=== PATIENT | female | born 1950 | race African-American/Black ===

== ENCOUNTER 2019-05-10 09:52 | Inpatient (IN) | payer BC, MEDICARE ==
[~2019-05-10] VITALS: Ht 172.7 cm; Wt 98.0 kg
[2019-05-10] MEDS ORDERED: MORPHINE SULFATE 4 MG/ML CPJ (NOT FOR IM USE) IV STA (10:19)
[2019-05-10 12:10] LABS: CHLORIDE 103 mEq/L (98-107)
[2019-05-10 12:11] LABS: HEMATOCRIT. 27.9 % (36.0-48.0); HEMOGLOBIN. 9.4 g/dL (12.0-16.0); MEAN CORPUSCULAR HEMOGLOBIN 29.7 pg (28.0-32.0); MEAN CORPUSCULAR VOLUME 88.2 fL (81.0-99.0); MEAN PLATELET VOLUME 10.1 fl (7.4-10.4); PLATELET 132 x1000/uL (130-400); RED BLOOD CELL COUNT 3.16 mill/uL (4.2-5.4); RED CELL DISTRIBUTION WIDTH 15.3 % (11.6-14.6)
[2019-05-10] MEDS ORDERED: ASPIRIN 325MG EC TABLET PO ONE (12:45)
[2019-05-10 13:11] LABS: PLATELET ESTIMATE NORMAL
[2019-05-10] MEDS ORDERED: LORAZEPAM 0.5MG TABLET PO PRN (13:15)
[2019-05-10] MEDS ORDERED: DIPHENHYDRAMINE 50MG/ML VIAL IV PRN (13:15)
[2019-05-10] MEDS ORDERED: ONDANSETRON HCL 4MG/2ML INJ IV PRN (13:15)
[2019-05-10] MEDS ORDERED: GUAIFENESIN 200MG/10ML SUGAR FREE UDC PO PRN (13:15)
[2019-05-10] MEDS ORDERED: NA PHOS,M-B/NA PHOS,DI-BA ENEMA 118ML PR PRN (13:15)
[2019-05-10] MEDS ORDERED: ACETAMINOPHEN 650MG SUPP PR PRN (13:15)
[2019-05-10] MEDS ORDERED: IPRATROPIUM/ALBUTEROL 0.5-3(2.5)MG/3ML NEB NEB PRN (13:15)
[2019-05-10] MEDS ORDERED: CLONIDINE 0.1MG TABLET PO PRN (13:15)
[2019-05-10] MEDS ORDERED: IOHEXOL-350 100 ML BOTTLE ONE (13:34)
[2019-05-10] MEDS ORDERED: LEVOFLOXACIN 500MG PREMIX 100 ML IV SCH (14:30)
[2019-05-10] MEDS ORDERED: PANTOPRAZOLE SODIUM 40 MG/VIAL IV SCH (14:30)
[2019-05-10 14:37] LABS: INR 1.3; PROTHROMBIN TIME 12.7 sec (9.6-11.0)
[2019-05-10 14:46] LABS: CREATINE KINASE 36 IU/L (26-192)
[2019-05-10 14:48] LABS: CREATINE KINASE MB FRACTION < 1.0 ng/mL (0.5-3.6)
[2019-05-10] MEDS: ACETAMINOPHEN 325MG TABLET PO PRN (15:21)
[2019-05-10 17:50] LABS: BG BASE EXCESS 2.1 mmol/L (-2.0-2.0); BG CARBOXYHEMOGLOBIN 0.5 % (0.5-1.5); BG DEOXYHEMOGLOBIN 3.6 % (0.0-5.0); BG FRACTION INSPIRED OXYGEN 21; BG HCO3 ACT 23.2 mmol/L (22.0-26.0); BG METHEMOGLOBIN 0.3 % (0.0-1.5); BG OXYGEN SATURATION 96.4 % (92.0-98.5); BG OXYHEMOGLOBIN 95.6 % (94.0-97.0); BG PCO2 24.7 mmHg (35.0-45.0); BG PH 7.591 (7.350-7.450); BG PO2 78.5 mmHg (75.0-100.0); BG SAMPLE SITE RIGHT BRACHIAL; BG TOTAL HEMOGLOBIN 9.4 g/dL (12.0-18.0); BG VENT MODE ROOM AIR
[2019-05-10] MEDS ORDERED: SIMETHICONE 80MG TABLET CHEW PO NR (18:00)
[2019-05-10 18:34] VITALS: BP 108/57
[2019-05-10] MEDS ORDERED: MULT-1146 MT (18:47)
[2019-05-10] MEDS ORDERED: LOSA1TAB37 MT (18:47)
[2019-05-10] MEDS ORDERED: APIX5TAB PO (18:47)
[2019-05-10 20:00] VITALS: BP 113/62
[2019-05-10] MEDS: MORPHINE SULFATE 2 MG/ML CPJ (NOT FOR IM USE) IV PRN (20:07)
[2019-05-10] MEDS ORDERED: PNEUMOCOCCAL 23-VAL P-SAC VAC 0.5 ML IM ONE (22:15)
[2019-05-11] VITALS: BP 111/65
[2019-05-11] MEDS ORDERED: PIPERACILLIN/TAZOBACTAM 3.375 G in DEXT 5% WATER 100 ML IV SCH (00:15)
[2019-05-11] MEDS ORDERED: FILGRASTIM-TBO 300 MCG/0.5 ML SYRINGE SQ SCH (02:00)
[2019-05-11 04:00] VITALS: BP 130/64
[2019-05-11] MEDS ORDERED: VANCOMYCIN 1500MG in DEXTROSE 5% WATER 250ML IV NR (04:00)
[2019-05-11] MEDS: PIPERACILLIN/TAZOBACTAM 3.375 G in DEXT 5% WATER 100 ML IV SCH ×2 (06:02→12:35)
[2019-05-11 07:05] LABS: HEMATOCRIT. 24.8 % (36.0-48.0); HEMOGLOBIN. 8.5 g/dL (12.0-16.0); MEAN CORPUSCULAR HEMOGLOBIN 30.1 pg (28.0-32.0); MEAN CORPUSCULAR VOLUME 88.4 fL (81.0-99.0); MEAN PLATELET VOLUME 8.8 fl (7.4-10.4); PLATELET 64 x1000/uL (130-400); RED CELL DISTRIBUTION WIDTH 15.6 % (11.6-14.6)
[2019-05-11 07:09] LABS: CHLORIDE 103 mEq/L (98-107)
[2019-05-11 07:25] LABS: CREATINE KINASE MB FRACTION < 1.0 ng/mL (0.5-3.6)
[2019-05-11 07:26] LABS: T4 FREE 1.29 ng/dL (0.76-1.46)
[2019-05-11 07:27] LABS: LDL CHOLESTEROL 44 mg/dL (5-100)
[2019-05-11 07:28] LABS: CREATINE KINASE 23 IU/L (26-192)
[2019-05-11 07:29] LABS: HDL CHOLESTEROL 54 mg/dL (40-59)
[2019-05-11 08:00] VITALS: BP 124/71
[2019-05-11] MEDS: IPRATROPIUM/ALBUTEROL 0.5-3(2.5)MG/3ML NEB NEB SCH (08:41)
[2019-05-11] MEDS ORDERED: ASPIRIN 81MG EC TABLET PO SCH (09:00)
[2019-05-11] MEDS: PANTOPRAZOLE SODIUM 40 MG/VIAL IV SCH (09:20)
[2019-05-11] MEDS: MORPHINE SULFATE 2 MG/ML CPJ (NOT FOR IM USE) IV PRN ×2 (09:20→21:47)
[2019-05-11] MEDS ORDERED: POTASSIUM CHLORIDE 20MEQ TABLET SR PO NR (11:00)
[2019-05-11 12:00] VITALS: BP 136/68
[2019-05-11] MEDS ORDERED: LEVOFLOXACIN 500MG PREMIX 100 ML IV SCH (14:00)
[2019-05-11 14:16] LABS: PLATELET ESTIMATE DECREASED
[2019-05-11 16:03] VITALS: BP 124/65
[2019-05-11] MEDS: ACETAMINOPHEN 325MG TABLET PO PRN (16:24)
[2019-05-11] MEDS: VANCOMYCIN 1250MG in DEXTROSE 5% WATER 250ML IV SCH (17:25)
[2019-05-11] MEDS: CEFEPIME 1,000 MG in DEXTROSE 5% WATER 50 ML IV SCH (17:25)
[2019-05-11 19:13] LABS: CLARITY URINE CLOUDY (CLEAR); COLOR URINE DARK YELLOW (YELLOW); KETONES URINE TRACE (NEGATIVE); LEUKOCYTE ESTERASE URINE TRACE (NEGATIVE); NITRITE URINE NEGATIVE (NEGATIVE); OCCULT BLOOD URINE NEGATIVE (NEGATIVE); PH URINE 6.5 (4.5-8.0); PROTEIN URINE 1+ (NEGATIVE); SPECIFIC GRAVITY URINE 1.059 (1.005-1.030)
[2019-05-11 19:31] LABS: *AMPHETAMINES SCREEN URINE NEGATIVE (NEGATIVE); *BARBITURATES SCREEN URINE NEGATIVE (NEGATIVE); *BENZODIAZEPINES SCREEN URINE NEGATIVE (NEGATIVE); *COCAINE SCREEN URINE NEGATIVE (NEGATIVE); METHADONE URINE SCREEN NEGATIVE (NEGATIVE)
[2019-05-11 19:32] LABS: CANNABINOID URINE SCREEN NEGATIVE (NEGATIVE); OPIATES URINE SCREEN PRESUMTIVE POSITIVE (NEGATIVE); PHENCYCLIDINE URINE SCREEN NEGATIVE (NEGATIVE)
[2019-05-11 20:00] VITALS: BP 115/50
[2019-05-11 21:02] LABS: HEMATOCRIT 25.1 % (36.0-48.0); HEMOGLOBIN 8.5 g/dL (12.0-16.0)
[2019-05-11] MEDS: METRONIDAZOLE 500 MG PREMIX 100 ML IV SCH (21:46)
[2019-05-11] MEDS: FILGRASTIM-TBO 480 MCG/0.8 ML SYRINGE SQ SCH (22:26)
[2019-05-12] VITALS: BP 123/65
[2019-05-12] MEDS: APIXABAN 5 MG TABLET PO SCH ×3 (00:10→17:30)
[2019-05-12] MEDS: IPRATROPIUM/ALBUTEROL 0.5-3(2.5)MG/3ML NEB NEB SCH ×5 (01:25→21:04)
[2019-05-12 04:00] VITALS: BP 107/60
[2019-05-12] MEDS: CEFEPIME 1,000 MG in DEXTROSE 5% WATER 50 ML IV SCH ×2 (05:30→17:30)
[2019-05-12] MEDS: SIMETHICONE 80MG TABLET CHEW PO PRN (06:03)
[2019-05-12] MEDS: METRONIDAZOLE 500 MG PREMIX 100 ML IV SCH ×3 (06:08→21:59)
[2019-05-12 06:31] LABS: HEMATOCRIT. 23.8 % (36.0-48.0); HEMOGLOBIN. 8.1 g/dL (12.0-16.0); MEAN CORPUSCULAR HEMOGLOBIN 29.8 pg (28.0-32.0); MEAN CORPUSCULAR VOLUME 87.5 fL (81.0-99.0); RED BLOOD CELL COUNT 2.72 mill/uL (4.2-5.4); RED CELL DISTRIBUTION WIDTH 15.2 % (11.6-14.6)
[2019-05-12 06:32] LABS: CHLORIDE 102 mEq/L (98-107)
[2019-05-12 08:00] VITALS: BP 124/69
[2019-05-12] MEDS: PANTOPRAZOLE SODIUM 40 MG/VIAL IV SCH (09:18)
[2019-05-12 09:26] LABS: MEAN PLATELET VOLUME 8.3 fl (7.4-10.4); PLATELET 57 x1000/uL (130-400)
[2019-05-12 09:35] LABS: NUCLEATED RED BLOOD CELLS 1 /100 WBC; PLATELET ESTIMATE DECREASED
[2019-05-12] MEDS: HYDROCODONE/ACETAMINOPHEN 5/325MG TABLET PO PRN (09:42)
[2019-05-12 12:00] VITALS: BP 122/68
[2019-05-12] MEDS: VANCOMYCIN 1250MG in DEXTROSE 5% WATER 250ML IV SCH (12:46)
[2019-05-12 16:00] VITALS: BP 120/60
[2019-05-12 20:00] VITALS: BP 106/54
[2019-05-12] MEDS: MORPHINE SULFATE 2 MG/ML CPJ (NOT FOR IM USE) IV PRN (21:58)
[2019-05-12] MEDS: FILGRASTIM-TBO 480 MCG/0.8 ML SYRINGE SQ SCH (21:59)
[2019-05-13] VITALS: BP 130/77
[2019-05-13] MEDS: IPRATROPIUM/ALBUTEROL 0.5-3(2.5)MG/3ML NEB NEB SCH ×2 (03:03→22:00)
[2019-05-13 04:00] VITALS: BP 109/67
[2019-05-13] MEDS: METRONIDAZOLE 500 MG PREMIX 100 ML IV SCH ×3 (05:23→22:43)
[2019-05-13] MEDS: CEFEPIME 1,000 MG in DEXTROSE 5% WATER 50 ML IV SCH ×2 (05:23→18:19)
[2019-05-13] MEDS: VANCOMYCIN 1250MG in DEXTROSE 5% WATER 250ML IV SCH (05:23)
[2019-05-13 08:00] VITALS: BP 105/65
[2019-05-13] MEDS: APIXABAN 5 MG TABLET PO SCH (09:00)
[2019-05-13] MEDS: PANTOPRAZOLE SODIUM 40 MG/VIAL IV SCH (09:52)
[2019-05-13] MEDS: DOCUSATE SODIUM 100MG CAPSULE PO PRN (09:52)
[2019-05-13 12:00] VITALS: BP 126/69
[2019-05-13] MEDS: HYDROCODONE/ACETAMINOPHEN 5/325MG TABLET PO PRN (14:01)
[2019-05-13 16:00] VITALS: BP 108/78
[2019-05-13] MEDS: PHENYLEPHRINE/SHK LV/MO/PET,WH RECTAL OINT 28GM PR SCH ×2 (18:19→23:13)
[2019-05-13 20:00] VITALS: BP 125/87
[2019-05-13] MEDS: FILGRASTIM-TBO 480 MCG/0.8 ML SYRINGE SQ SCH (22:49)
[2019-05-13] MEDS: HEMORRHOIDAL SUPP PR SCH (22:49)
[2019-05-14] VITALS (8 sets, daily range): BP systolic 98–134; BP diastolic 63–76
[2019-05-14] MEDS: HYDROCODONE/ACETAMINOPHEN 5/325MG TABLET PO PRN ×3 (01:23→18:24)
[2019-05-14] MEDS: MORPHINE SULFATE 2 MG/ML CPJ (NOT FOR IM USE) IV PRN (04:13)
[2019-05-14] MEDS: PHENYLEPHRINE/SHK LV/MO/PET,WH RECTAL OINT 28GM PR SCH ×3 (05:53→17:14)
[2019-05-14] MEDS: METRONIDAZOLE 500 MG PREMIX 100 ML IV SCH ×3 (05:53→22:10)
[2019-05-14] MEDS: CEFEPIME 1,000 MG in DEXTROSE 5% WATER 50 ML IV SCH ×2 (05:53→17:14)
[2019-05-14] MEDS ORDERED: SODIUM BICARBONATE 4% (2.4MEQ) 5ML VIAL IV ONE (08:10)
[2019-05-14] MEDS ORDERED: LIDOCAINE HCL 1% 20ML VIAL (Pyxis) INJ ONE (08:10)
[2019-05-14] MEDS: IPRATROPIUM/ALBUTEROL 0.5-3(2.5)MG/3ML NEB NEB SCH ×3 (09:04→22:38)
[2019-05-14] MEDS: PANTOPRAZOLE SODIUM 40 MG/VIAL IV SCH (09:34)
[2019-05-14] MEDS: HEMORRHOIDAL SUPP PR SCH ×2 (09:34→22:00)
[2019-05-14 11:42] LABS: HEMATOCRIT. 23.9 % (36.0-48.0); MEAN CORPUSCULAR HEMOGLOBIN 29.4 pg (28.0-32.0); MEAN CORPUSCULAR VOLUME 87.1 fL (81.0-99.0); MEAN PLATELET VOLUME 8.6 fl (7.4-10.4); RED BLOOD CELL COUNT 2.74 mill/uL (4.2-5.4); RED CELL DISTRIBUTION WIDTH 15.2 % (11.6-14.6)
[2019-05-14 11:47] LABS: PLATELET 32 x1000/uL (130-400)
[2019-05-14 12:01] LABS: CHLORIDE 103 mEq/L (98-107)
[2019-05-14 14:10] LABS: NUCLEATED RED BLOOD CELLS 24 /100 WBC; PLATELET ESTIMATE MARKEDLY DECREASED
[2019-05-14] MEDS: DOCUSATE SODIUM 100MG CAPSULE PO PRN (17:16)
[2019-05-14] MEDS: FILGRASTIM-TBO 480 MCG/0.8 ML SYRINGE SQ SCH (22:50)
[2019-05-15] VITALS: BP 126/60
[2019-05-15] MEDS: PHENYLEPHRINE/SHK LV/MO/PET,WH RECTAL OINT 28GM PR SCH ×5 (01:59→23:12)
[2019-05-15] MEDS: IPRATROPIUM/ALBUTEROL 0.5-3(2.5)MG/3ML NEB NEB SCH ×5 (02:15→22:08)
[2019-05-15 04:00] VITALS: BP 130/74
[2019-05-15] MEDS: METRONIDAZOLE 500 MG PREMIX 100 ML IV SCH ×3 (05:24→23:12)
[2019-05-15] MEDS: CEFEPIME 1,000 MG in DEXTROSE 5% WATER 50 ML IV SCH ×2 (06:22→17:36)
[2019-05-15 07:39] LABS: CHLORIDE 102 mEq/L (98-107); HEMATOCRIT 22.7 % (36.0-48.0); HEMOGLOBIN 7.8 g/dL (12.0-16.0); MEAN CORPUSCULAR HEMOGLOBIN 29.8 pg (28.0-32.0); MEAN CORPUSCULAR VOLUME 87.2 fL (81.0-99.0); PLATELET 51 x1000/uL (130-400); RED BLOOD CELL COUNT 2.61 mill/uL (4.2-5.4); RED CELL DISTRIBUTION WIDTH 15.4 % (11.6-14.6)
[2019-05-15] MEDS: ACETAMINOPHEN 325MG TABLET PO PRN ×2 (08:57→20:16)
[2019-05-15] MEDS: PANTOPRAZOLE SODIUM 40 MG/VIAL IV SCH (08:58)
[2019-05-15] MEDS: HEMORRHOIDAL SUPP PR SCH ×2 (08:59→20:15)
[2019-05-15] MEDS ORDERED: POTASSIUM CHLORIDE 20MEQ TABLET SR PO SCH (10:15)
[2019-05-15 12:00] VITALS: BP 103/60
[2019-05-15 16:00] VITALS: BP 100/66
[2019-05-15] MEDS: FERROUS SULFATE 325MG TABLET PO SCH (17:36)
[2019-05-15 20:00] VITALS: BP 99/60
[2019-05-15] MEDS: ENOXAPARIN 100MG/ML SYR SUBCUT SCH (20:15)
[2019-05-16] VITALS: BP 112/60
[2019-05-16] MEDS: IPRATROPIUM/ALBUTEROL 0.5-3(2.5)MG/3ML NEB NEB SCH ×4 (02:10→21:32)
[2019-05-16 04:00] VITALS: BP 108/64
[2019-05-16] MEDS: PHENYLEPHRINE/SHK LV/MO/PET,WH RECTAL OINT 28GM PR SCH ×4 (05:37→23:49)
[2019-05-16] MEDS: CEFEPIME 1,000 MG in DEXTROSE 5% WATER 50 ML IV SCH ×2 (05:37→17:30)
[2019-05-16] MEDS: METRONIDAZOLE 500 MG PREMIX 100 ML IV SCH ×3 (06:32→22:28)
[2019-05-16 06:49] LABS: HEMATOCRIT. 24.3 % (36.0-48.0); HEMOGLOBIN. 8.2 g/dL (12.0-16.0); MEAN CORPUSCULAR HEMOGLOBIN 29.3 pg (28.0-32.0); MEAN CORPUSCULAR VOLUME 87.5 fL (81.0-99.0); MEAN PLATELET VOLUME 8.9 fl (7.4-10.4); PLATELET 61 x1000/uL (130-400); RED BLOOD CELL COUNT 2.78 mill/uL (4.2-5.4)
[2019-05-16 07:10] LABS: CHLORIDE 104 mEq/L (98-107)
[2019-05-16 08:00] VITALS: BP 103/58
[2019-05-16] MEDS: HEMORRHOIDAL SUPP PR SCH ×2 (09:33→20:27)
[2019-05-16] MEDS: PANTOPRAZOLE SODIUM 40 MG/VIAL IV SCH (09:33)
[2019-05-16] MEDS: FERROUS SULFATE 325MG TABLET PO SCH ×3 (09:34→17:30)
[2019-05-16] MEDS: ENOXAPARIN 100MG/ML SYR SUBCUT SCH ×2 (09:43→20:27)
[2019-05-16] MEDS: SIMETHICONE 80MG TABLET CHEW PO PRN (10:17)
[2019-05-16] MEDS: MAGNESIUM/ALUMINUM HYDROXIDE/SIMETHICONE 30ML UDC PO PRN (10:27)
[2019-05-16 11:30] VITALS: BP 145/84
[2019-05-16 16:00] VITALS: BP 111/66
[2019-05-17] VITALS: BP 138/69
[2019-05-17 04:00] VITALS: BP 122/75
[2019-05-17] MEDS: CEFEPIME 1,000 MG in DEXTROSE 5% WATER 50 ML IV SCH ×2 (05:46→17:37)
[2019-05-17] MEDS: PHENYLEPHRINE/SHK LV/MO/PET,WH RECTAL OINT 28GM PR SCH ×3 (05:46→17:36)
[2019-05-17] MEDS: METRONIDAZOLE 500 MG PREMIX 100 ML IV SCH ×3 (05:48→22:06)
[2019-05-17 07:55] LABS: HEMATOCRIT 21.2 % (36.0-48.0); MEAN CORPUSCULAR HEMOGLOBIN 29.2 pg (28.0-32.0); MEAN CORPUSCULAR VOLUME 88.7 fL (81.0-99.0); PLATELET 69 x1000/uL (130-400); RED BLOOD CELL COUNT 2.39 mill/uL (4.2-5.4); RED CELL DISTRIBUTION WIDTH 15.8 % (11.6-14.6)
[2019-05-17 08:00] VITALS: BP 142/62
[2019-05-17 08:33] LABS: CHLORIDE 104 mEq/L (98-107)
[2019-05-17] MEDS: IPRATROPIUM/ALBUTEROL 0.5-3(2.5)MG/3ML NEB NEB SCH ×2 (08:45→14:09)
[2019-05-17] MEDS: PANTOPRAZOLE SODIUM 40 MG/VIAL IV SCH (09:04)
[2019-05-17] MEDS: FERROUS SULFATE 325MG TABLET PO SCH ×3 (09:04→17:35)
[2019-05-17] MEDS: HEMORRHOIDAL SUPP PR SCH ×2 (09:44→22:05)
[2019-05-17] MEDS: ENOXAPARIN 100MG/ML SYR SUBCUT SCH ×2 (09:44→21:06)
[2019-05-17 12:00] VITALS: BP 165/88
[2019-05-17 15:40] LABS: NUCLEATED RED BLOOD CELLS 21 /100 WBC
[2019-05-17 15:41] LABS: PLATELET ESTIMATE DECREASED
[2019-05-17 16:00] VITALS: BP 151/72
[2019-05-17] MEDS: POTASSIUM CHLORIDE 20MEQ TABLET SR PO NR ×2 (17:35→17:37)
[2019-05-17 20:00] VITALS: BP 111/81
[2019-05-18] VITALS (11 sets, daily range): BP systolic 94–146; BP diastolic 60–80
[2019-05-18] MEDS: PHENYLEPHRINE/SHK LV/MO/PET,WH RECTAL OINT 28GM PR SCH ×5 (00:42→23:53)
[2019-05-18] MEDS: IPRATROPIUM/ALBUTEROL 0.5-3(2.5)MG/3ML NEB NEB SCH ×5 (00:50→20:56)
[2019-05-18 06:04] LABS: INR 1.5; PROTHROMBIN TIME 15.1 sec (9.6-11.0)
[2019-05-18] MEDS: CEFEPIME 1,000 MG in DEXTROSE 5% WATER 50 ML IV SCH ×2 (06:13→18:05)
[2019-05-18] MEDS: METRONIDAZOLE 500 MG PREMIX 100 ML IV SCH ×3 (06:14→21:21)
[2019-05-18 06:46] LABS: HEMATOCRIT. 28.6 % (36.0-48.0); HEMOGLOBIN. 9.5 g/dL (12.0-16.0); MEAN CORPUSCULAR HEMOGLOBIN 29.2 pg (28.0-32.0); MEAN CORPUSCULAR VOLUME 87.5 fL (81.0-99.0); MEAN PLATELET VOLUME 8.9 fl (7.4-10.4); PLATELET 72 x1000/uL (130-400); RED BLOOD CELL COUNT 3.27 mill/uL (4.2-5.4)
[2019-05-18 07:09] LABS: CHLORIDE 104 mEq/L (98-107)
[2019-05-18] MEDS: FERROUS SULFATE 325MG TABLET PO SCH ×3 (09:11→18:04)
[2019-05-18] MEDS: PANTOPRAZOLE SODIUM 40 MG/VIAL IV SCH (09:12)
[2019-05-18] MEDS: ENOXAPARIN 100MG/ML SYR SUBCUT SCH ×2 (09:12→20:00)
[2019-05-18] MEDS: HEMORRHOIDAL SUPP PR SCH ×2 (09:20→21:20)
[2019-05-18] MEDS ORDERED: POTASSIUM CHLORIDE 20MEQ TABLET SR PO NR (17:00)
[2019-05-18] MEDS: ACETAMINOPHEN 325MG TABLET PO PRN (23:51)
[2019-05-19] VITALS: BP 140/75
[2019-05-19] MEDS: IPRATROPIUM/ALBUTEROL 0.5-3(2.5)MG/3ML NEB NEB SCH ×4 (02:38→21:21)
[2019-05-19 04:00] VITALS: BP 152/75
[2019-05-19] MEDS: PHENYLEPHRINE/SHK LV/MO/PET,WH RECTAL OINT 28GM PR SCH ×3 (05:50→18:34)
[2019-05-19 07:10] LABS: HEMATOCRIT. 27.1 % (36.0-48.0); HEMOGLOBIN. 9.1 g/dL (12.0-16.0); MEAN CORPUSCULAR HEMOGLOBIN 29.3 pg (28.0-32.0); MEAN CORPUSCULAR VOLUME 87.7 fL (81.0-99.0); MEAN PLATELET VOLUME 8.2 fl (7.4-10.4); PLATELET 72 x1000/uL (130-400); RED BLOOD CELL COUNT 3.09 mill/uL (4.2-5.4)
[2019-05-19 07:20] LABS: CHLORIDE 107 mEq/L (98-107)
[2019-05-19] MEDS: FERROUS SULFATE 325MG TABLET PO SCH ×3 (07:50→18:33)
[2019-05-19 08:00] VITALS: BP 154/90
[2019-05-19] MEDS: ENOXAPARIN 100MG/ML SYR SUBCUT SCH ×2 (08:00→21:35)
[2019-05-19] MEDS: HEMORRHOIDAL SUPP PR SCH ×2 (09:00→21:45)
[2019-05-19 11:04] LABS: NUCLEATED RED BLOOD CELLS 10 /100 WBC; PLATELET ESTIMATE DECREASED
[2019-05-19 12:00] VITALS: BP 161/77
[2019-05-19] MEDS: PANTOPRAZOLE SODIUM 40 MG/VIAL IV SCH (13:33)
[2019-05-19] MEDS: SIMETHICONE 80MG TABLET CHEW PO PRN (14:53)
[2019-05-19 15:27] LABS: NUCLEATED RED BLOOD CELLS 4 /100 WBC; PLATELET ESTIMATE DECREASED
[2019-05-19 16:00] VITALS: BP 125/70
[2019-05-19] MEDS: MAGNESIUM/ALUMINUM HYDROXIDE/SIMETHICONE 30ML UDC PO PRN (16:57)
[2019-05-19 20:00] VITALS: BP 111/64
[2019-05-19] MEDS: ACETAMINOPHEN 325MG TABLET PO PRN (21:34)
[2019-05-20] VITALS: BP 119/65
[2019-05-20] MEDS: PHENYLEPHRINE/SHK LV/MO/PET,WH RECTAL OINT 28GM PR SCH ×3 (00:45→12:00)
[2019-05-20] MEDS: IPRATROPIUM/ALBUTEROL 0.5-3(2.5)MG/3ML NEB NEB SCH ×3 (01:23→14:47)
[2019-05-20 04:00] VITALS: BP 120/83
[2019-05-20 08:00] VITALS: BP 131/86
[2019-05-20] MEDS: HEMORRHOIDAL SUPP PR SCH (09:00)
[2019-05-20] MEDS: PANTOPRAZOLE SODIUM 40 MG/VIAL IV SCH (09:32)
[2019-05-20] MEDS: ENOXAPARIN 100MG/ML SYR SUBCUT SCH (09:45)
[2019-05-20] MEDS: FERROUS SULFATE 325MG TABLET PO SCH ×3 (09:45→17:59)
[2019-05-20 12:00] VITALS: BP 122/73
[2019-05-20 14:20] VITALS: BP 122/73
[2019-05-20 16:00] VITALS: BP 117/78
[2019-05-20] MEDS: MAGNESIUM/ALUMINUM HYDROXIDE/SIMETHICONE 30ML UDC PO PRN (17:37)
== END 2019-05-20 18:05 | DRG 73 ==
LOC: ER 09:52 → 5WST 12:41 → SUPCPDRO 13:09 → ENRESERV 14:55 → 6WST 05-14 14:26
PROVIDERS: ADMIT Ophthalmology; ATTEND Ophthalmology
PROC: 30233R1 Transfusion of Nonautologous Platelets into Peripheral Vein, Percutaneous Approach (ICD-10-PCS; principal; 2019-05-14)
PROC: 02HV33Z Insertion of Infusion Device into Superior Vena Cava, Percutaneous Approach (ICD-10-PCS; 2019-05-14)
PROC: B548ZZA Ultrasonography of Superior Vena Cava, Guidance (ICD-10-PCS; 2019-05-14)
PROC: B5181ZA Fluoroscopy of Superior Vena Cava using Low Osmolar Contrast, Guidance (ICD-10-PCS; 2019-05-14)
PROC: 30233N1 Transfusion of Nonautologous Red Blood Cells into Peripheral Vein, Percutaneous Approach (ICD-10-PCS; 2019-05-17)
DX: G13.0 Paraneoplastic neuromyopathy and neuropathy (principal); A41.9 Sepsis, unspecified organism; I50.33 Acute on chronic diastolic (congestive) heart failure; K83.1 Obstruction of bile duct; C25.9 Malignant neoplasm of pancreas, unspecified; D68.59 Other primary thrombophilia; N39.0 Urinary tract infection, site not specified; I82.621 Acute embolism and thrombosis of deep veins of right upper extremity; I82.C11 Acute embolism and thrombosis of right internal jugular vein; I82.A11 Acute embolism and thrombosis of right axillary vein; I82.B11 Acute embolism and thrombosis of right subclavian vein; D61.818 Other pancytopenia; I11.0 Hypertensive heart disease with heart failure; D64.9 Anemia, unspecified; R73.9 Hyperglycemia, unspecified; Z79.01 Long term (current) use of anticoagulants; K21.9 Gastro-esophageal reflux disease without esophagitis; K64.9 Unspecified hemorrhoids; D70.1 Agranulocytosis secondary to cancer chemotherapy; E87.8 Other disorders of electrolyte and fluid balance, not elsewhere classified; R26.9 Unspecified abnormalities of gait and mobility; E66.9 Obesity, unspecified; E88.09 Other disorders of plasma-protein metabolism, not elsewhere classified; T45.1X5A Adverse effect of antineoplastic and immunosuppressive drugs, initial encounter; G62.9 Polyneuropathy, unspecified; G89.29 Other chronic pain; Z82.49 Family history of ischemic heart disease and other diseases of the circulatory system; Z85.07 Personal history of malignant neoplasm of pancreas; Y92.89 Other specified places as the place of occurrence of the external cause; Z68.32 Body mass index [BMI] 32.0-32.9, adult
CPT/HCPCS: 36415; 36573; 36600; 71045; 71275; 74176; 76604; 80048; 80061; 80305; 81003; 82270; 82375; 82550; 82553; 82805; 83036; 83735; 83880; 84439; 84443; 84484; 85014; 85018; 85027; 85384; 86301; 86850; 86900; 86920; 87804; 93005; 93306; 93970; 93971; 94640; 97162; 97166; 97530; 99285; C1725; C9113; J0692; J1442; J1650; J1956; J2270; J2405; J2543; J3370; J3490; J7040; J7060; J7620; P9016; P9034; Q9967

== ENCOUNTER 2019-05-20 18:10 | Inpatient (IN) | payer BC, MEDICARE ==
[~2019-05-20] VITALS: Ht 172.7 cm; Wt 98.0 kg
[~2019-05-20 18:10] MED LIST: LOSA1TAB37 MT; MULT-1146 MT
[2019-05-20 20:00] VITALS: BP_SYST 125; BP_SYST 128; BP_DIAS 75; BP_DIAS 92
[2019-05-20] MEDS ORDERED: GUAIFENESIN 200MG/10ML SUGAR FREE UDC PO PRN (21:30)
[2019-05-20] MEDS ORDERED: NA PHOS,M-B/NA PHOS,DI-BA ENEMA 118ML PR PRN (21:30)
[2019-05-20] MEDS ORDERED: CLONIDINE 0.1MG TABLET PO PRN (21:30)
[2019-05-20] MEDS ORDERED: DIPHENHYDRAMINE 25MG CAPSULE PO PRN (21:30)
[2019-05-20] MEDS ORDERED: IPRATROPIUM/ALBUTEROL 0.5-3(2.5)MG/3ML NEB HHN PRN (21:30)
[2019-05-20] MEDS ORDERED: ACETAMINOPHEN 650MG SUPP PR PRN (21:30)
[2019-05-20] MEDS ORDERED: DOCUSATE SODIUM 100MG CAPSULE PO PRN (21:30)
[2019-05-20] MEDS ORDERED: ONDANSETRON HCL 4MG TABLET PO PRN (21:30)
[2019-05-21] MEDS: PHENYLEPHRINE/SHK LV/MO/PET,WH RECTAL OINT 28GM PR SCH ×4 (00:09→17:39)
[2019-05-21] MEDS: SIMETHICONE 80MG TABLET CHEW PO PRN ×2 (00:09→17:36)
[2019-05-21] MEDS: IPRATROPIUM/ALBUTEROL 0.5-3(2.5)MG/3ML NEB HHN SCH ×4 (01:55→21:05)
[2019-05-21] MEDS: ACETAMINOPHEN 325MG TABLET PO PRN (04:18)
[2019-05-21 08:26] VITALS: BP 103/64
[2019-05-21 08:58] LABS: HEMATOCRIT. 26.6 % (36.0-48.0); HEMOGLOBIN. 8.8 g/dL (12.0-16.0); MEAN CORPUSCULAR HEMOGLOBIN 29.3 pg (28.0-32.0); MEAN CORPUSCULAR VOLUME 88.6 fL (81.0-99.0); MEAN PLATELET VOLUME 8.7 fl (7.4-10.4); PLATELET 90 x1000/uL (130-400); RED BLOOD CELL COUNT 3.01 mill/uL (4.2-5.4); RED CELL DISTRIBUTION WIDTH 16.2 % (11.6-14.6)
[2019-05-21 09:00] LABS: CHLORIDE 113 mEq/L (98-107)
[2019-05-21] MEDS: HEMORRHOIDAL SUPP PR SCH ×2 (09:00→21:00)
[2019-05-21] MEDS: APIXABAN 5 MG TABLET PO SCH ×2 (10:05→17:36)
[2019-05-21] MEDS: FERROUS SULFATE 325MG TABLET PO SCH ×3 (10:05→17:36)
[2019-05-21] MEDS: PANTOPRAZOLE 40MG DR TABLET PO SCH (10:05)
[2019-05-21] MEDS ORDERED: POTASSIUM CHLORIDE 20MEQ TABLET SR PO NR (12:00)
[2019-05-21] MEDS: MAGNESIUM/ALUMINUM HYDROXIDE/SIMETHICONE 30ML UDC PO PRN (14:37)
[2019-05-21] MEDS ORDERED: HYDROCODONE/ACETAMINOPHEN 5/325MG TABLET PO PRN (17:15)
[2019-05-21 17:25] LABS: NUCLEATED RED BLOOD CELLS 2 /100 WBC; PLATELET ESTIMATE DECREASED
[2019-05-21 20:00] VITALS: BP 124/66
[2019-05-22] MEDS: IPRATROPIUM/ALBUTEROL 0.5-3(2.5)MG/3ML NEB HHN SCH ×2 (02:10→21:10)
[2019-05-22] MEDS: PHENYLEPHRINE/SHK LV/MO/PET,WH RECTAL OINT 28GM PR SCH ×4 (06:00→18:00)
[2019-05-22 07:48] LABS: HEMATOCRIT. 28.6 % (36.0-48.0); HEMOGLOBIN. 9.6 g/dL (12.0-16.0); MEAN CORPUSCULAR HEMOGLOBIN 29.8 pg (28.0-32.0); MEAN PLATELET VOLUME 9.2 fl (7.4-10.4); PLATELET 145 x1000/uL (130-400); RED BLOOD CELL COUNT 3.21 mill/uL (4.2-5.4); RED CELL DISTRIBUTION WIDTH 16.4 % (11.6-14.6)
[2019-05-22 07:51] LABS: CHLORIDE 106 mEq/L (98-107)
[2019-05-22 08:00] VITALS: BP 120/73
[2019-05-22 08:11] LABS: PHOSPHORUS 1.7 mg/dL (2.5-4.9)
[2019-05-22 08:17] LABS: TOTAL IRON BINDING CAPACITY 135 ug/dL (250-450)
[2019-05-22 08:26] LABS: VITAMIN B12 SERUM > 2000.0 pg/mL (211-911)
[2019-05-22] MEDS: HEMORRHOIDAL SUPP PR SCH ×2 (09:00→21:00)
[2019-05-22 09:25] LABS: FERRITIN 1675 ng/mL (10-291)
[2019-05-22] MEDS: APIXABAN 5 MG TABLET PO SCH ×2 (09:26→16:15)
[2019-05-22] MEDS: FERROUS SULFATE 325MG TABLET PO SCH ×3 (09:26→16:15)
[2019-05-22] MEDS: PANTOPRAZOLE 40MG DR TABLET PO SCH (09:26)
[2019-05-22 10:08] LABS: CLARITY URINE CLEAR (CLEAR); COLOR URINE YELLOW (YELLOW); KETONES URINE NEGATIVE (NEGATIVE); LEUKOCYTE ESTERASE URINE NEGATIVE (NEGATIVE); NITRITE URINE NEGATIVE (NEGATIVE); OCCULT BLOOD URINE NEGATIVE (NEGATIVE); PROTEIN URINE TRACE (NEGATIVE); SPECIFIC GRAVITY URINE 1.008 (1.005-1.030); UROBILINOGEN URINE 0.2 E.U./dL (0.2-1.0)
[2019-05-22 12:50] LABS: PLATELET ESTIMATE NORMAL
[2019-05-22] MEDS ORDERED: ONDANSETRON HCL 4MG/2ML INJ IV NR (13:15)
[2019-05-22] MEDS ORDERED: SIMETHICONE 80MG TABLET CHEW PO PRN (18:15)
[2019-05-22] MEDS ORDERED: SODIUM CHLORIDE 0.9% 1,000 ML IV SCH (18:15)
[2019-05-22 20:00] VITALS: BP_SYST 129; BP_SYST 147; BP_DIAS 43; BP_DIAS 63
[2019-05-22] MEDS: POTASSIUM-SODIUM PHOSPHATE POWDER PACKET PO SCH (20:35)
[2019-05-23] MEDS: IPRATROPIUM/ALBUTEROL 0.5-3(2.5)MG/3ML NEB HHN SCH ×4 (01:30→20:09)
[2019-05-23] MEDS: PHENYLEPHRINE/SHK LV/MO/PET,WH RECTAL OINT 28GM PR SCH ×4 (06:00→17:09)
[2019-05-23 07:36] LABS: HEMATOCRIT 27.5 % (36.0-48.0); HEMOGLOBIN 9.2 g/dL (12.0-16.0); MEAN CORPUSCULAR HEMOGLOBIN 30.4 pg (28.0-32.0); MEAN CORPUSCULAR VOLUME 90.6 fL (81.0-99.0); PLATELET 191 x1000/uL (130-400); RED BLOOD CELL COUNT 3.04 mill/uL (4.2-5.4); RED CELL DISTRIBUTION WIDTH 16.4 % (11.6-14.6)
[2019-05-23 08:00] VITALS: BP 110/64
[2019-05-23 08:02] LABS: CHLORIDE 107 mEq/L (98-107)
[2019-05-23 08:13] LABS: T4 FREE 1.36 ng/dL (0.76-1.46)
[2019-05-23] MEDS: HEMORRHOIDAL SUPP PR SCH ×2 (09:00→20:39)
[2019-05-23] MEDS: POTASSIUM-SODIUM PHOSPHATE POWDER PACKET PO SCH (09:09)
[2019-05-23] MEDS: FAMOTIDINE 20MG TABLET PO SCH ×2 (09:10→17:08)
[2019-05-23] MEDS: FERROUS SULFATE 325MG TABLET PO SCH ×3 (09:10→17:08)
[2019-05-23] MEDS: APIXABAN 5 MG TABLET PO SCH ×2 (12:37→17:08)
[2019-05-23 20:00] VITALS: BP 107/66
[2019-05-24] MEDS: IPRATROPIUM/ALBUTEROL 0.5-3(2.5)MG/3ML NEB HHN SCH ×4 (02:12→20:50)
[2019-05-24] MEDS: SIMETHICONE 80MG TABLET CHEW PO PRN ×2 (04:23→21:34)
[2019-05-24] MEDS: PHENYLEPHRINE/SHK LV/MO/PET,WH RECTAL OINT 28GM PR SCH ×4 (05:02→17:03)
[2019-05-24] MEDS: LEVOTHYROXINE SODIUM 50MCG TABLET PO SCH (06:13)
[2019-05-24] MEDS: ACETAMINOPHEN 325MG TABLET PO PRN ×2 (06:28→22:59)
[2019-05-24 08:25] VITALS: BP 126/69
[2019-05-24] MEDS: HEMORRHOIDAL SUPP PR SCH ×2 (09:00→21:00)
[2019-05-24] MEDS: FAMOTIDINE 20MG TABLET PO SCH ×2 (10:05→17:03)
[2019-05-24] MEDS: FERROUS SULFATE 325MG TABLET PO SCH ×3 (10:05→17:03)
[2019-05-24] MEDS: APIXABAN 5 MG TABLET PO SCH ×2 (10:05→17:03)
[2019-05-24] MEDS: MAGNESIUM/ALUMINUM HYDROXIDE/SIMETHICONE 30ML UDC PO PRN (10:34)
[2019-05-24 11:40] LABS: HEMATOCRIT. 29.5 % (36.0-48.0); HEMOGLOBIN. 9.8 g/dL (12.0-16.0); MEAN CORPUSCULAR VOLUME 90.1 fL (81.0-99.0); MEAN PLATELET VOLUME 8.3 fl (7.4-10.4); PLATELET 297 x1000/uL (130-400); RED BLOOD CELL COUNT 3.27 mill/uL (4.2-5.4); RED CELL DISTRIBUTION WIDTH 16.8 % (11.6-14.6)
[2019-05-24 12:35] LABS: NUCLEATED RED BLOOD CELLS 1 /100 WBC; PLATELET ESTIMATE NORMAL
[2019-05-24 20:00] VITALS: BP 110/67
[2019-05-25] MEDS: IPRATROPIUM/ALBUTEROL 0.5-3(2.5)MG/3ML NEB HHN SCH ×3 (02:18→10:16)
[2019-05-25] MEDS: PHENYLEPHRINE/SHK LV/MO/PET,WH RECTAL OINT 28GM PR SCH ×4 (06:00→18:00)
[2019-05-25 06:12] LABS: HEMATOCRIT 25.5 % (36.0-48.0); HEMOGLOBIN 8.5 g/dL (12.0-16.0); MEAN CORPUSCULAR HEMOGLOBIN 30.2 pg (28.0-32.0); MEAN CORPUSCULAR VOLUME 90.4 fL (81.0-99.0); PLATELET 317 x1000/uL (130-400); RED BLOOD CELL COUNT 2.82 mill/uL (4.2-5.4); RED CELL DISTRIBUTION WIDTH 17.5 % (11.6-14.6)
[2019-05-25] MEDS: LEVOTHYROXINE SODIUM 50MCG TABLET PO SCH (06:23)
[2019-05-25 08:16] VITALS: BP 111/65
[2019-05-25] MEDS: APIXABAN 5 MG TABLET PO SCH ×2 (08:37→16:30)
[2019-05-25] MEDS: FAMOTIDINE 20MG TABLET PO SCH ×2 (08:37→16:24)
[2019-05-25] MEDS: FERROUS SULFATE 325MG TABLET PO SCH ×3 (08:37→16:30)
[2019-05-25] MEDS: HEMORRHOIDAL SUPP PR SCH ×2 (09:00→21:00)
[2019-05-25] MEDS: MAGNESIUM/ALUMINUM HYDROXIDE/SIMETHICONE 30ML UDC PO PRN (16:23)
[2019-05-25] MEDS ORDERED: OMEP40CA34 PO (18:01)
[2019-05-25] MEDS ORDERED: LIPA1CAP18 MT (18:01)
[2019-05-25] MEDS ORDERED: DILT60TA35 PO (18:01)
[2019-05-25 20:00] VITALS: BP 117/70
[2019-05-26] MEDS: ACETAMINOPHEN 325MG TABLET PO PRN ×2 (00:16→23:44)
[2019-05-26] MEDS: LEVOTHYROXINE SODIUM 50MCG TABLET PO SCH (06:29)
[2019-05-26] MEDS: PHENYLEPHRINE/SHK LV/MO/PET,WH RECTAL OINT 28GM PR SCH ×5 (06:32→23:45)
[2019-05-26 07:48] VITALS: BP 107/54
[2019-05-26] MEDS: HEMORRHOIDAL SUPP PR SCH ×2 (08:24→21:00)
[2019-05-26] MEDS: APIXABAN 5 MG TABLET PO SCH ×2 (08:25→17:16)
[2019-05-26] MEDS: FAMOTIDINE 20MG TABLET PO SCH ×2 (08:25→17:16)
[2019-05-26] MEDS: FERROUS SULFATE 325MG TABLET PO SCH (08:25)
[2019-05-26] MEDS: SIMETHICONE 80MG TABLET CHEW PO PRN (17:16)
[2019-05-26 18:38] LABS: HEMATOCRIT. 25.6 % (36.0-48.0); HEMOGLOBIN. 8.4 g/dL (12.0-16.0); MEAN CORPUSCULAR HEMOGLOBIN 29.9 pg (28.0-32.0); MEAN CORPUSCULAR VOLUME 91.1 fL (81.0-99.0); MEAN PLATELET VOLUME 7.5 fl (7.4-10.4); PLATELET 391 x1000/uL (130-400); RED BLOOD CELL COUNT 2.81 mill/uL (4.2-5.4); RED CELL DISTRIBUTION WIDTH 22.9 % (11.6-14.6)
[2019-05-26 18:41] LABS: CHLORIDE 110 mEq/L (98-107)
[2019-05-26 20:00] VITALS: BP 97/61
[2019-05-26 20:03] LABS: NUCLEATED RED BLOOD CELLS 1 /100 WBC; PLATELET ESTIMATE NORMAL
[2019-05-26] MEDS: MAGNESIUM/ALUMINUM HYDROXIDE/SIMETHICONE 30ML UDC PO PRN (20:31)
[2019-05-27 04:11] LABS: 25-HYDROXY VITAMIN D3 30 ng/mL (.)
[2019-05-27] MEDS: PHENYLEPHRINE/SHK LV/MO/PET,WH RECTAL OINT 28GM PR SCH ×4 (06:00→23:16)
[2019-05-27] MEDS: LEVOTHYROXINE SODIUM 50MCG TABLET PO SCH (06:24)
[2019-05-27 08:24] VITALS: BP 106/66
[2019-05-27] MEDS: FAMOTIDINE 20MG TABLET PO SCH ×2 (08:47→16:01)
[2019-05-27] MEDS: HEMORRHOIDAL SUPP PR SCH ×2 (08:47→21:23)
[2019-05-27] MEDS: APIXABAN 5 MG TABLET PO SCH ×2 (08:47→16:01)
[2019-05-27] MEDS ORDERED: HYDROCODONE/ACETAMINOPHEN 5/325MG TABLET PO PRN (14:45)
[2019-05-27] MEDS: SIMETHICONE 80MG TABLET CHEW PO PRN ×2 (15:44→21:57)
[2019-05-27] MEDS: MAGNESIUM/ALUMINUM HYDROXIDE/SIMETHICONE 30ML UDC PO PRN (16:01)
[2019-05-27 20:00] VITALS: BP 114/65
[2019-05-28] MEDS: ACETAMINOPHEN 325MG TABLET PO PRN (00:53)
[2019-05-28] MEDS: PHENYLEPHRINE/SHK LV/MO/PET,WH RECTAL OINT 28GM PR SCH ×3 (06:00→17:50)
[2019-05-28] MEDS: LEVOTHYROXINE SODIUM 50MCG TABLET PO SCH (06:20)
[2019-05-28 08:35] VITALS: BP 112/68
[2019-05-28] MEDS: FAMOTIDINE 20MG TABLET PO SCH ×2 (10:00→17:49)
[2019-05-28] MEDS: HEMORRHOIDAL SUPP PR SCH ×2 (10:00→21:28)
[2019-05-28] MEDS: APIXABAN 5 MG TABLET PO SCH ×2 (10:00→17:49)
[2019-05-28] MEDS: MAGNESIUM/ALUMINUM HYDROXIDE/SIMETHICONE 30ML UDC PO PRN ×3 (10:45→16:00)
[2019-05-28] MEDS: SIMETHICONE 80MG TABLET CHEW PO PRN ×2 (14:00→21:43)
[2019-05-28 20:00] VITALS: BP 116/61
[2019-05-29] MEDS: ACETAMINOPHEN 325MG TABLET PO PRN (01:33)
[2019-05-29] MEDS: PHENYLEPHRINE/SHK LV/MO/PET,WH RECTAL OINT 28GM PR SCH ×3 (06:00→12:00)
[2019-05-29] MEDS: LEVOTHYROXINE SODIUM 50MCG TABLET PO SCH (06:29)
[2019-05-29 08:00] VITALS: BP 113/71
[2019-05-29] MEDS: FAMOTIDINE 20MG TABLET PO SCH ×2 (09:23→17:13)
[2019-05-29] MEDS: HEMORRHOIDAL SUPP PR SCH ×2 (09:23→21:00)
[2019-05-29] MEDS: APIXABAN 5 MG TABLET PO SCH ×2 (09:23→17:13)
[2019-05-29] MEDS: MAGNESIUM/ALUMINUM HYDROXIDE/SIMETHICONE 30ML UDC PO PRN ×2 (12:49→21:13)
[2019-05-29 20:00] VITALS: BP 105/62
[2019-05-30] MEDS: ACETAMINOPHEN 325MG TABLET PO PRN ×2 (00:23→20:20)
[2019-05-30] MEDS: PHENYLEPHRINE/SHK LV/MO/PET,WH RECTAL OINT 28GM PR SCH ×5 (05:40→23:57)
[2019-05-30] MEDS: SIMETHICONE 80MG TABLET CHEW PO PRN ×2 (05:41→11:47)
[2019-05-30] MEDS: LEVOTHYROXINE SODIUM 50MCG TABLET PO SCH (06:04)
[2019-05-30 07:28] LABS: BASOPHILS % 0.9 % (0.0-2.0); EOSINOPHILS % 0.4 % (0.0-5.0); HEMOGLOBIN. 9.1 g/dL (12.0-16.0); LYMPHOCYTES % 10.5 % (20.0-50.0); MEAN CORPUSCULAR HEMOGLOBIN 30.6 pg (28.0-32.0); MEAN CORPUSCULAR VOLUME 90.9 fL (81.0-99.0); MEAN PLATELET VOLUME 6.9 fl (7.4-10.4); MONOCYTES % 12.2 % (2.0-8.0); PLATELET 420 x1000/uL (130-400); RED BLOOD CELL COUNT 2.97 mill/uL (4.2-5.4); RED CELL DISTRIBUTION WIDTH 21.2 % (11.6-14.6)
[2019-05-30 08:00] VITALS: BP 114/65
[2019-05-30 08:15] LABS: CHLORIDE 108 mEq/L (98-107)
[2019-05-30 08:21] LABS: PHOSPHORUS 3.5 mg/dL (2.5-4.9)
[2019-05-30] MEDS: FAMOTIDINE 20MG TABLET PO SCH (09:06)
[2019-05-30] MEDS: HEMORRHOIDAL SUPP PR SCH ×2 (09:07→20:20)
[2019-05-30] MEDS: MAGNESIUM/ALUMINUM HYDROXIDE/SIMETHICONE 30ML UDC PO PRN ×2 (09:15→15:23)
[2019-05-30] MEDS: APIXABAN 5 MG TABLET PO SCH ×2 (11:46→17:35)
[2019-05-30] MEDS: PANTOPRAZOLE SODIUM 40 MG/VIAL IV SCH (17:35)
[2019-05-30 20:00] VITALS: BP 113/66
[2019-05-31] MEDS: PHENYLEPHRINE/SHK LV/MO/PET,WH RECTAL OINT 28GM PR SCH ×4 (06:00→23:59)
[2019-05-31] MEDS: LEVOTHYROXINE SODIUM 50MCG TABLET PO SCH (06:11)
[2019-05-31 08:00] VITALS: BP 127/82
[2019-05-31] MEDS: APIXABAN 5 MG TABLET PO SCH ×2 (08:58→17:48)
[2019-05-31] MEDS: HEMORRHOIDAL SUPP PR SCH ×2 (08:59→21:39)
[2019-05-31] MEDS: PANTOPRAZOLE SODIUM 40 MG/VIAL IV SCH ×2 (08:59→17:52)
[2019-05-31 20:00] VITALS: BP 118/59
[2019-06-01] MEDS: PHENYLEPHRINE/SHK LV/MO/PET,WH RECTAL OINT 28GM PR SCH ×3 (06:00→18:00)
[2019-06-01] MEDS: LEVOTHYROXINE SODIUM 50MCG TABLET PO SCH (06:14)
[2019-06-01] MEDS: ACETAMINOPHEN 325MG TABLET PO PRN (06:14)
[2019-06-01 08:09] VITALS: BP 112/66
[2019-06-01] MEDS: HEMORRHOIDAL SUPP PR SCH ×4 (09:00→21:39)
[2019-06-01] MEDS: APIXABAN 5 MG TABLET PO SCH ×2 (09:06→18:00)
[2019-06-01] MEDS: PANTOPRAZOLE SODIUM 40 MG/VIAL IV SCH (09:06)
[2019-06-01] MEDS ORDERED: HYDROCODONE/ACETAMINOPHEN 5/325MG TABLET PO PRN (10:15)
[2019-06-01] MEDS: SIMETHICONE 80MG TABLET CHEW PO PRN ×2 (15:24→20:05)
[2019-06-01] MEDS: MAGNESIUM/ALUMINUM HYDROXIDE/SIMETHICONE 30ML UDC PO PRN (18:00)
[2019-06-01 20:00] VITALS: BP 122/81
[2019-06-01] MEDS: OMEPRAZOLE 20MG CAPSULE EXTENDED RELEASE PO SCH (21:33)
[2019-06-02] MEDS: ACETAMINOPHEN 325MG TABLET PO PRN ×2 (00:25→21:32)
[2019-06-02] MEDS: PHENYLEPHRINE/SHK LV/MO/PET,WH RECTAL OINT 28GM PR SCH ×4 (06:00→17:24)
[2019-06-02] MEDS: LEVOTHYROXINE SODIUM 50MCG TABLET PO SCH (06:27)
[2019-06-02 08:00] VITALS: BP 112/59
[2019-06-02] MEDS: OMEPRAZOLE 20MG CAPSULE EXTENDED RELEASE PO SCH ×2 (08:57→21:30)
[2019-06-02] MEDS ORDERED: APIXABAN 2.5 MG TABLET PO SCH (09:00)
[2019-06-02] MEDS: HEMORRHOIDAL SUPP PR SCH ×2 (09:00→21:00)
[2019-06-02 09:24] LABS: HEMATOCRIT 28.6 % (36.0-48.0); HEMOGLOBIN 9.6 g/dL (12.0-16.0); MEAN CORPUSCULAR HEMOGLOBIN 30.6 pg (28.0-32.0); PLATELET 313 x1000/uL (130-400); RED BLOOD CELL COUNT 3.14 mill/uL (4.2-5.4)
[2019-06-02 09:39] LABS: CHLORIDE 110 mEq/L (98-107)
[2019-06-02] MEDS: APIXABAN 5 MG TABLET PO SCH (17:19)
[2019-06-02] MEDS: MAGNESIUM/ALUMINUM HYDROXIDE/SIMETHICONE 30ML UDC PO PRN (18:27)
[2019-06-02 20:00] VITALS: BP 122/80
[2019-06-03] MEDS: PHENYLEPHRINE/SHK LV/MO/PET,WH RECTAL OINT 28GM PR SCH ×4 (06:00→16:37)
[2019-06-03] MEDS: LEVOTHYROXINE SODIUM 50MCG TABLET PO SCH (06:23)
[2019-06-03 08:00] VITALS: BP 112/56
[2019-06-03] MEDS: OMEPRAZOLE 20MG CAPSULE EXTENDED RELEASE PO SCH ×2 (08:01→21:17)
[2019-06-03] MEDS: APIXABAN 5 MG TABLET PO SCH ×2 (08:01→16:37)
[2019-06-03] MEDS: HEMORRHOIDAL SUPP PR SCH ×3 (08:19→21:18)
[2019-06-03] MEDS: MAGNESIUM/ALUMINUM HYDROXIDE/SIMETHICONE 30ML UDC PO PRN (12:45)
[2019-06-03] MEDS: SIMETHICONE 80MG TABLET CHEW PO PRN (16:37)
[2019-06-03 20:00] VITALS: BP 121/65
[2019-06-03] MEDS: ACETAMINOPHEN 325MG TABLET PO PRN (21:18)
[2019-06-04] MEDS: PHENYLEPHRINE/SHK LV/MO/PET,WH RECTAL OINT 28GM PR SCH ×2 (06:00)
[2019-06-04] MEDS: LEVOTHYROXINE SODIUM 50MCG TABLET PO SCH (06:39)
[2019-06-04 07:32] LABS: HEMATOCRIT 30.8 % (36.0-48.0); HEMOGLOBIN 10.3 g/dL (12.0-16.0); MEAN CORPUSCULAR HEMOGLOBIN 30.6 pg (28.0-32.0); MEAN CORPUSCULAR VOLUME 91.7 fL (81.0-99.0); PLATELET 291 x1000/uL (130-400); RED BLOOD CELL COUNT 3.36 mill/uL (4.2-5.4); RED CELL DISTRIBUTION WIDTH 20.9 % (11.6-14.6)
[2019-06-04 07:58] VITALS: BP 123/80
[2019-06-04] MEDS: HEMORRHOIDAL SUPP PR SCH (09:00)
[2019-06-04 09:07] LABS: CHLORIDE 110 mEq/L (98-107)
[2019-06-04] MEDS: OMEPRAZOLE 20MG CAPSULE EXTENDED RELEASE PO SCH (09:28)
[2019-06-04] MEDS: APIXABAN 5 MG TABLET PO SCH (09:28)
[2019-06-04 11:52] VITALS: BP 123/80
== END 2019-06-04 12:50 | disposition home health service (06) | DRG 73 ==
LOC: UNDOADMIN 21:22
PROVIDERS: ADMIT Physical Medicine & Rehabilitation Spinal Cord Injury Medicine; ATTEND Ophthalmology
DX: G13.0 Paraneoplastic neuromyopathy and neuropathy (principal); I50.33 Acute on chronic diastolic (congestive) heart failure; D61.810 Antineoplastic chemotherapy induced pancytopenia; C25.9 Malignant neoplasm of pancreas, unspecified; E87.1 Hypo-osmolality and hyponatremia; D68.59 Other primary thrombophilia; I82.621 Acute embolism and thrombosis of deep veins of right upper extremity; R18.8 Other ascites; I82.C11 Acute embolism and thrombosis of right internal jugular vein; I82.B11 Acute embolism and thrombosis of right subclavian vein; I82.A11 Acute embolism and thrombosis of right axillary vein; G62.0 Drug-induced polyneuropathy; I11.0 Hypertensive heart disease with heart failure; K21.9 Gastro-esophageal reflux disease without esophagitis; D64.9 Anemia, unspecified; Z85.07 Personal history of malignant neoplasm of pancreas; R06.03 Acute respiratory distress; R26.9 Unspecified abnormalities of gait and mobility; K64.9 Unspecified hemorrhoids; D72.829 Elevated white blood cell count, unspecified; F39 Unspecified mood [affective] disorder; Z79.01 Long term (current) use of anticoagulants; Z82.49 Family history of ischemic heart disease and other diseases of the circulatory system; T45.1X5A Adverse effect of antineoplastic and immunosuppressive drugs, initial encounter; Y92.89 Other specified places as the place of occurrence of the external cause; G89.29 Other chronic pain; R19.5 Other fecal abnormalities; R53.81 Other malaise; R11.2 Nausea with vomiting, unspecified; G63 Polyneuropathy in diseases classified elsewhere; F06.31 Mood disorder due to known physiological condition with depressive features; R59.9 Enlarged lymph nodes, unspecified
CPT/HCPCS: 36415; 71045; 74018; 80048; 81003; 82306; 82607; 82728; 82746; 83540; 83550; 83735; 84100; 84134; 84439; 84443; 84481; 85027; 93970; 94640; 97110; 97112; 97116; 97162; 97166; 97530; 97535; C9113; J7620; Q0162